=== PATIENT | male | born 1960 | race Caucasian/White ===

== ENCOUNTER 2021-02-05 15:17 | Day surgery (SDC) | payer OTHER ==
[2021-02-05] MEDS ORDERED: Xylocaine 1% Vial 30 ML PF IJ ONE (15:18)
[2021-02-05] MEDS ORDERED: Depo-Medrol 40 MG/ML IM ONE (15:18)
[2021-02-05] MEDS ORDERED: BUPIVACAINE 0.5% VIAL IJ ONE (15:18)
--- NOTE | 2021-02-05 20:01 | XRAY ---
Indication: Right shoulder and subacromial injections. Intraoperative fluoroscopy provided for 20 seconds. 2 digital spot image submitted for interpretation demonstrates needle tip projecting over the right glenohumeral joint superiorly. Second needle tip projects subacromial. Small amount of contrast injected for both needle tip placement. Correlate with intraoperative findings/report.
--- NOTE | 2021-02-06 09:07 | XRAY ---
20 seconds fluoroscopy time in surgery for injections of the intra-articular joint space and the subachromial joint space of the right shoulder.
== END 2021-02-05 17:55 | disposition home or self-care (01) ==
LOC: SDC-PAIN 15:17
PROVIDERS: ATTEND Psychiatry & Neurology Pain Medicine
DX: M19.011 Primary osteoarthritis, right shoulder (principal); Z79.899 Other long term (current) drug therapy
CPT/HCPCS: 20610; 73030; 77002; J1030; J2001; Q9966

== ENCOUNTER 2021-04-30 12:00 | Day surgery (SDC) | payer OTHER ==
[2021-04-30] MEDS ORDERED: BUPIVACAINE 0.5% VIAL IJ ONE (12:01)
[2021-04-30] MEDS ORDERED: Xylocaine 1% Vial 30 ML PF IJ ONE (12:01)
[2021-04-30] MEDS ORDERED: Depo-Medrol 40 MG/ML IM ONE (12:01)
[2021-04-30] MEDS ORDERED: DIPRIVAN 200 MG/20 ML IV ONE (14:03)
--- NOTE | 2021-04-30 15:01 | XRAY ---
17 seconds fluoroscopy time in surgery for injections of the intra-articular joint space and subachromial bursa of the right shoulder.
--- NOTE | 2021-04-30 15:07 | XRAY ---
Indication: Right shoulder and subacromial bursa injections. Intraoperative fluoroscopy provided for 17 seconds. 3 digital spot images submitted for interpretation demonstrates needle tip projecting over right glenohumeral joint superiorly. Second needle tip projects subacromial. Small amount of contrast injected for both needle tip placement. Correlate with intraoperative findings/report.
== END 2021-04-30 14:27 | disposition home or self-care (01) ==
LOC: SDC-PAIN 12:00
PROVIDERS: ATTEND Psychiatry & Neurology Pain Medicine
DX: M19.011 Primary osteoarthritis, right shoulder (principal); M75.51 Bursitis of right shoulder; I10 Essential (primary) hypertension; Z79.899 Other long term (current) drug therapy
CPT/HCPCS: 20610; 73030; 77002; J1030; J2001; J2704; Q9967

== ENCOUNTER 2021-11-12 15:10 | Day surgery (SDC) | payer OTHER ==
[2021-11-12] MEDS ORDERED: Depo-Medrol 40 MG/ML IM ONE (15:11)
[2021-11-12] MEDS ORDERED: XYLOCAINE-MPF 1% 5ML SDV IJ ONE (15:11)
[2021-11-12] MEDS ORDERED: Marcaine Mpf 0.5% Vial 30 Ml IJ ONE (15:11)
--- NOTE | 2021-11-12 19:45 | XRAY ---
Indication: Right shoulder and subacromial bursa injection. Intraoperative fluoroscopy provided for 27 seconds. 2 digital spot image submitted for interpretation demonstrates needle tip projecting over the right glenohumeral joint superiorly. Second needle tip subacromial. Small amount of contrast injected for both needle tip placement. Correlate with intraoperative findings/report.
--- NOTE | 2021-11-13 08:42 | XRAY ---
27 seconds of fluoroscopy was used in surgery for a right shoulder intra-articular and subacromial bursa injections.
== END 2021-11-12 17:55 | disposition home or self-care (01) ==
LOC: SDC-PAIN 15:10
PROVIDERS: ATTEND Psychiatry & Neurology Pain Medicine
DX: M19.011 Primary osteoarthritis, right shoulder (principal); M75.51 Bursitis of right shoulder; Z79.899 Other long term (current) drug therapy
CPT/HCPCS: 20610; 73030; 77002; J1030

== ENCOUNTER 2022-03-19 14:49 | Day surgery (SDC) | payer OTHER ==
[2022-03-19] MEDS ORDERED: Depo-Medrol 40 MG/ML IM ONE (14:50)
[2022-03-19] MEDS ORDERED: BUPIVACAINE 0.5% VIAL IJ ONE (14:50)
[2022-03-19] MEDS ORDERED: LIDOCAINE HCL 1% 50 MG/5 ML VL PF IJ ONE (14:50)
--- NOTE | 2022-03-19 16:35 | XRAY ---
Indication: Right shoulder and subacromial injection. Intraoperative fluoroscopy provided for 23 seconds. 3 digital spot image submitted for interpretation demonstrates needle tip projecting over the right glenohumeral joint. Second needle tip subacromial. Small amount of contrast injected for both needle tip placement. Correlate with intraoperative findings/report.
--- NOTE | 2022-03-19 20:36 | XRAY ---
23 seconds fluoroscopy time in surgery for intra-articular and subacromial injections of the right shoulder.
== END 2022-03-19 16:30 | disposition home or self-care (01) ==
LOC: SDC-PAIN 14:49
PROVIDERS: ATTEND Psychiatry & Neurology Pain Medicine
DX: M19.011 Primary osteoarthritis, right shoulder (principal); M75.51 Bursitis of right shoulder; Z79.899 Other long term (current) drug therapy
CPT/HCPCS: 20610; 73030; 77002; J1030; J2001; Q9966

== ENCOUNTER 2022-08-26 14:28 | Day surgery (SDC) | payer OTHER ==
[2022-08-26] MEDS ORDERED: LIDOCAINE HCL 1% 50 MG/5 ML VL PF IJ ONE (14:29)
[2022-08-26] MEDS ORDERED: Depo-Medrol 40 MG/ML IM ONE (14:29)
[2022-08-26] MEDS ORDERED: BUPIVACAINE 0.5% VIAL IJ ONE (14:29)
--- NOTE | 2022-08-26 22:02 | XRAY ---
Indication: Right shoulder and subacromial bursa injection. Intraoperative fluoroscopy provided for 45 seconds. 3 digital spot image submitted for interpretation demonstrates needle tip projecting over the right glenohumeral joint superiorly. Second needle tip subacromial. Small amount of contrast injected for both needle tip placement. Correlate with intraoperative findings/report.
== END 2022-08-26 17:10 | disposition home or self-care (01) ==
LOC: SDC-PAIN 14:28
PROVIDERS: ATTEND Psychiatry & Neurology Pain Medicine
DX: M19.011 Primary osteoarthritis, right shoulder (principal); M75.51 Bursitis of right shoulder; Z79.899 Other long term (current) drug therapy
CPT/HCPCS: 20610; 73030; 77002; J1030; J2001; Q9966

== ENCOUNTER 2022-11-18 12:58 | Day surgery (SDC) | payer OTHER ==
[2022-11-18] MEDS ORDERED: XYLOCAINE 1% HCL 20 ML MDV IJ ONE (12:59)
[2022-11-18] MEDS ORDERED: LIDOCAINE HCL 2% 100 MG/5 ML IJ ONE (12:59)
--- NOTE | 2022-11-18 16:35 | XRAY ---
Indication: Bilateral L4-S1 MBB. Intraoperative fluoroscopy provided for 27 seconds. 2 digital spot images submitted for interpretation demonstrates posterior needle tips projecting over the expected left and right L4-S1 nerve roots. Correlate with intraoperative findings/report.
[2022-11-18] MEDS ORDERED: Lactated Ringers 1,000 ML IV ONE (18:03)
--- NOTE | 2022-11-19 09:53 | XRAY ---
27 second of fluoroscopy was used in surgery for a bilateral L4-S1 MBB.
== END 2022-11-18 15:57 | disposition home or self-care (01) ==
LOC: SDC-PAIN 12:58
PROVIDERS: ATTEND Psychiatry & Neurology Pain Medicine
DX: M47.816 Spondylosis without myelopathy or radiculopathy, lumbar region (principal); Z79.899 Other long term (current) drug therapy
CPT/HCPCS: 64493; 64494; 72020; 77002

== ENCOUNTER 2023-01-13 16:01 | Day surgery (SDC) | payer OTHER ==
[2023-01-13] MEDS ORDERED: Sodium Chloride 0.9(Preservative Free) 10 ML IJ ONE (16:02)
[2023-01-13] MEDS ORDERED: Depo-Medrol 40 MG/ML IM ONE (16:02)
[2023-01-13] MEDS ORDERED: LIDOCAINE HCL 1% 50 MG/5 ML VL PF IJ ONE (16:02)
--- NOTE | 2023-01-13 21:28 | XRAY ---
Indication: Lumbar ROBERT. Intraoperative fluoroscopy provided for 21 seconds. 4 digital spot image submitted for interpretation demonstrates posterior needle tip projecting posterior to L4. Small amount of contrast injected for needle tip placement. Correlate with intraoperative findings/report.
--- NOTE | 2023-01-14 09:39 | XRAY ---
21 seconds of fluoroscopy was used in surgery for a lumbar ROBERT.
== END 2023-01-13 19:20 | disposition home or self-care (01) ==
LOC: SDC-PAIN 16:01
PROVIDERS: ATTEND Psychiatry & Neurology Pain Medicine
DX: M54.16 Radiculopathy, lumbar region (principal); Z79.899 Other long term (current) drug therapy
CPT/HCPCS: 62323; 72100; 77003; J1030; J2001; Q9966